=== PATIENT | male | born 1985 | race Two or more races ===

== ENCOUNTER 2025-01-12 16:22 | Inpatient (IN) | payer MEDICAID, OTHER ==
[~2025-01-12] VITALS: Ht 170.2 cm; Wt 88.5 kg
--- NOTE | 2025-01-12 16:50 | ED.PDOC ---
GI ASSESSMENT HPI Comments 39 y/o M, presents to the ED for CC of abdominal pain. Patient states, he has been experiencing diffuse abdominal pain with associated symptoms of nausea, vomiting, or diarrhea xdays. Patient complains of current 10/10 abdominal pain. Patient denies fever, chills, back pain, or dysuria. No other symptoms or modifying factors present at this time. Chief Complaint: Abdominal Pain Time Seen by MD: 16:40 Reviewed Notes: Nurses Notes, Medications, Allergies Allergies: Coded Allergies: NO KNOWN ALLERGIES (Unverified , 01/12/25) Information Source: Patient Mode of Arrival: Ambulatory Timing: Days Duration: Since onset Prehospital treatment: None Quality: None Vomitus: Watery Stool: Watery Severity: Moderate Recent: None Recent Hx of: None Pain Location: Diffuse Modifying Factors: Nothing Associated sign and symptoms: Nausea, Vomiting, Diarrhea, Abdominal Pain Past Medical History PAST MEDICAL HISTORY: Denies Surgical History: Denies all surgeries Family History Family History: Unknown Social History Smoker: Non-Smoker Alcohol: Denies ETOH Use Drugs: Denies Drug Use Lives In: Home Constitutional: denies: chills, diaphoresis, fatigue, fever, malaise, sweats, weakness, others EENTM: denies: blurred vision, double vision, ear bleeding, ear discharge, ear drainage, ear pain, ear ringing, eye pain, eye redness, hearing loss, mouth pain, mouth swelling, nasal discharge, nose bleeding, nose congestion, nose pain, photophobia, tearing, throat pain, throat swelling, voice changes, others Respiratory: denies: cough, hemoptysis, orthopnea, SOB at rest, shortness of breath, SOB with excertion, stridor, wheezing, others Cardiovascular: denies: chest pain, dizzy spells, diaphoresis, Dyspnea on exertion, edema, irregular heart beat, left arm pain, lightheadedness, palpitations, PND, syncope, others Gastrointestinal: reports: abdominal pain, diarrhea, nausea, vomiting; denies: abdomen distended, blood streaked bowels, constipated, dysphagia, difficulty swallowing, hematemesis, melena, poor appetite, poor fluid intake, rectal bleeding, rectal pain, others Genitourinary: denies: burning, dysuria, flank pain, frequency, hematuria, incontinence, penile discharge, penile sore, pain, testicle pain, testicle swell ing, urgency, others Neurological: denies: dizziness, fainting, headache, left sided numbness, left sided weakness, numbness, paresthesia, pre-existing deficit, right sided numbness, right sided weakness, seizure, speech problems, tingling, tremors, weakness, others Musculoskeletal: denies: back pain, gout, joint pain, joint swelling, muscle pain, muscle stiffness, neck pain, others Integumetry: denies: bruises, change in color, change in hair/nails, dryness, laceration, lesions, lumps, rash, wounds, others Allergic/Immunocompromised: denies: Difficulty Healing, Frequent Infections, Hives, Itching, others Hematologic/Lymphatic: denies: anemia, blood clots, easy bleeding, easy bruising, swollen glands, others Endocrine: denies: excessive hunger, excessive sweating, excessive thirst, excessive urination, flushing, intolerance to cold, intolerance to heat, unexplained weight gain, unexplained weight loss, others Psychiatric: denies: anxiety, bipolar disorder, depression, hopeless, panic disorder, schizophrenia, sleepless, suicidal, others All Other Systems: Reviewed and Negative Physical Exam General Appearance: No Apparent Distress, Normal HEENT: Normal ENT Inspection, Pharynx Normal Neck: Full Range of Motion, Non-Tender, Normal, Normal Inspection Respiratory: Chest Non-Tender, Lungs Clear, No Accessory Muscle Use, No Respiratory Distress, Normal Breath Sounds Cardiovascular: No Edema, No Murmur, No Gallop, Normal Peripheral Pulses, Regular Rate/Rhythm Breast Exam: Deferred Gastrointestinal: Diffuse, No Organomegaly, No Pulsatile Mass, Normal Bowel Sounds, Soft, Tenderness Genitalia: Deferred Pelvic: Deferred Rectal: Deferred Extremities: No calf tenderness, Normal capillary refill, Normal inspection, Normal range of motion, Non-tender, No pedal edema Musculoskeletal : Apperance: Normal Neurologic: Alert, 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 Was a procedure done?: No GI differential Dx Differential Diagnosis: Diverticular disease, Gastritis/PUD, Gastroenteritis, Inflammatory BD, Electrolyte Imbalance, Food Poisoning, Bacterial, Viral X-Ray, Labs, Meds, VS Vital Signs Date Time Temp Pulse Resp B/P (MAP) Pulse Ox O2 Delivery O2 Flow Rate FiO2 01/12/25 17:55 Room Air* 0 21 01/12/25 17:52 99.4 109 18 113/78 (90) 98 99.4 01/12/25 16:37 98.8 113 18 122/80 (94) 95 98.8 Lab Test 01/12/25 16:53 01/12/25 16:41 Range/Units Sodium Level 136 136-145 mmol/L Potassium Level 3.5 3.5-5.1 mmol/L Chloride Level 99 98-107 mmol/L Carbon Dioxide Level 26 20-31 mmol/L Anion Gap 11 5-15 Blood Urea Nitrogen 17 9-23 mg/dL Creatinine 1.81 H 0.700-1.30 mg/dL Glomerular Filtration Rate Calc 49 >90 mL/min BUN/Creatinine Ratio 9.4 L 10.0-20.0 Serum Glucose 147 H 74-106 mg/dL Calcium Level 9.6 8.7-10.4 mg/dL Total Bilirubin 3.6 H 0.2-1.0 mg/dL Aspartate Amino Transferase (AST) 28 13-40 U/L Alanine Aminotransferase (ALT) 38 7-40 U/L Alkaline Phosphatase 87 46-116 U/L Total Protein 8.3 H 5.7-8.2 g/dL Albumin 5.0 H 3.2-4.8 g/dL Lipase 38 12-53 U/L White Blood Count 21.1 H 4.4-10.8 10^3/uL Red Blood Count 5.44 4.5-5.90 10^6/uL Hemoglobin 16.9 13.5-17.5 g/dL Hematocrit 50.0 41.0-53.0 % Mean Corpuscular Volume 92.0 80.0-100.0 fL Mean Corpuscular Hemoglobin 31.2 28.0-32.0 pg Mean Corpuscular Hemoglobin Concent 33.9 32.0-36.0 g/dL Red Cell Distribution Width 14.0 11.8-14.3 % Platelet Count 290 140-450 10^3/uL Mean Platelet Volume 9.1 6.9-10.8 fL Neutrophils (%) (Auto) 86.7 H 37.0-80.0 % Lymphocytes (%) (Auto) 7.9 L 10.0-50.0 % Monocytes (%) (Auto) 5.0 0.0-12.0 % Eosinophils (%) (Auto) 0.0 0.0-7.0 % Basophils (%) (Auto) 0.4 0.0-2.0 % Neutrophils # (Auto) 18.3 H 1.6-8.6 10 ^3/uL Lymphocytes # (Auto) 1.7 0.4-5.4 10 ^3/uL Monocytes # (Auto) 1.0 0-1.3 10 ^3/uL Eosinophils # (Auto) 0 0-0.8 10 ^3/uL Basophils # (Auto) 0.1 0-0.2 10 ^3/uL Nucleated Red Blood Cells 0.0 % Current Medications Medications (Trade) Dose Ordered Sig/Destiny Route Start Time Stop Time Status Last Admin Metronidazole 100 ml @ 100 mls/hr ONCE ONCE IV 01/12/25 18:00 01/12/25 18:59 01/12/25 17:55 Ceftriaxone Sodium 50 ml @ 100 mls/hr ONCE ONCE IV 01/12/25 18:00 01/12/25 18:29 DC 01/12/25 17:55 [place] [id number] Ph: [phone] DIAGNOSTIC IMAGING Diagnostic Imaging Report : [id number] Signed PATIENT: MARIANNA BURTONOACCT: [id number] UNIT: [id number] : 1985 LOC: ER ROOM / BED: / AGE / SEX: 39 / M ADM STATUS: REG ER SERVICE 1641 ORDERING PHYSICIAN: NICK LOTT PROCEDURE(s): ABPL - CT AB PEL WO CON-NO ORAL OR IV REASON: ABD PAIN ORDER NUMBER(s): [id number], ACCESSION NUMBER(s): [id number] Exam: CT CT AB PEL WO CON-NO ORAL OR IV History: ABD PAIN Comparison Study: None Technique: Multidetector spiral CT of the abdomen and pelvis was performed from lung bases to pubic symphysis. Imaging was performed without IV contrast. Axial, coronal and sagittal multiplanar reformats were obtained from the axial d shin set by the technologist. Radiation dose : Abdomen/Pelvis: CTDIvol 10.26 mGy, DLP 552.19 mGy*cm. Findings: Evaluation of solid organs is limited due to lack of intravenous contrast use. Lung Bases: Ground-glass opacification nodular consolidation in the right lung base. Liver: The liver is normal in size. No focal lesions. Gallbladder and biliary Tree: Unremarkable Spleen: Unremarkable Pancreas: The pancreas is grossly normal in appearance. Adrenal Glands: Unremarkable Kidneys: Kidneys are grossly normal without calculi or hydronephrosis. Bladder: Grossly unremarkable for degree of distention. Bowel: The stomach is grossly normal in appearance. Small bowel is mildly dilated. Appendix is dilated with appendicolith at the base. There is associated wall thickening. There is adjacent extraluminal air and stranding. No loculated abscess. There is diffuse bowel wall thickening more prominent in the pelvis. Ascites: Small amount of free fluid in the pelvis. Lymphadenopathy: No mesenteric, retroperitoneal or periportal lymphadenopathy. Abdominal wall and Mesentery: Unremarkable. Vasculature: The visualized abdominal aorta is normal in size and caliber. Evaluation of abdominal and pelvic vessels is limited due to lack of intravenous contrast. Pelvic Organs: Unremarkable Musculoskeletal: No aggressive focal bony lesions, acute fractures or dislocation. IMPRESSION: 1. Acute appendicitis which appears to have ruptured with extraluminal air and free fluid in the pelvis. No definite loculated abscess. Wall thickening in the regional bowel could be due to secondary ileus. Consider follow-up exam with intravenous contrast. Clinical correlation and continued follow-up is recommended. 2. Ground-glass and nodular consolidation in the right lung base. Consider dedicated chest CT. Critical Result: Acute appendicitis Findings discussed with NICK LOTT at 01/12/2025 05:36 PM, and acknowledged receipt and understanding of the findings. Radiation optimization: All CT scans at this facility use at least one of these dose optimization techniques: Automated exposure control mA and/or kV adjustment per patient size (includes targeted exams where dose is matched to clinical indication) or iterative reconstruction. HS:Y ATED BY: KRISHAN GIRON MD DICTATED DATE/TIME: 01/12/251740 SIGNED BY: KRISHAN GIRON MD SIGNED DATE/TIME: 01/12/251740 CC: X-Ray, Labs, Meds, VS Comment CT abdomen and pelvis: IMPRESSION: 1. Acute appendicitis which appears to have ruptured with extraluminal air and free fluid in the pelvis. No definite loculated abscess. Wall thickening in the regional bowel could be due to secondary ileus. Consider follow-up exam with intravenous contrast. Clinical correlation and continued follow-up is recommended. 2. Ground-glass and nodular consolidation in the right lung base. Consider dedicated chest CT. Critical Result: Acute appendicitis Findings discussed with NICK LOTT at 01/12/2025 05:36 PM, and acknowledged receipt and understanding of the findings. Radiation optimization: All CT scans at this facility use at least one of these dose optimization techniques: Automated exposure control mA and/or kV adjustment per patient size (includes targeted exams where dose is matched to clinical indication) or iterative reconstruction. Spoke with Dr. Ferrara, general surgery on-call, he will come into evaluate patient , patient evaluated at 6:51 p.m., Recommends patient be hydrated with 1-2 L NS due to his creatinine being low and concerns of dehydration. Jeff jensen be 1st case at 7:00 a.m. tomorrow morning. Patient may sip on water, he will be held NPO midnight. Patient is started on Rocephin 1 g and Flagyl 500 Time of 1ST Reevaluation: 17:20 Reevaluation 1ST: Unchanged Patient Education/Counseling: Diagnosis, Treatment Family Education/Counseling: No Family Present SEPSIS Sepsis Screen Physician Orders Urinalysis (01/12/25 16:41) Ct Ab Pel Wo Con-No Oral Or Iv (01/12/25 16:41) Npo (Nothing By Mouth) Diet (01/12/25 Dinner) Metronidazole 500mg/100ml (Flagyl 500mg/ (01/12/25 18:00) Vital Signs Date Time Temp Pulse Resp B/P (MAP) Pulse Ox O2 Delivery O2 Flow Rate FiO2 01/12/25 17:55 Room Air* 0 21 01/12/25 17:52 99.4 109 18 113/78 (90) 98 99.4 01/12/25 16:37 98.8 113 18 122/80 (94) 95 98.8 Laboratory Tests Test 01/12/25 16:41 White Blood Count 21.1 10^3/uL (4.4-10.8) H Medications Medications Dose Ordered Sig/Destiny Route Start Time Stop Time Status Last Admin Dose Admin Ceftriaxone Sodium 50 ml @ 100 mls/hr ONCE ONCE IV 01/12/25 18:00 01/12/25 18:29 DC 01/12/25 17:55 Metronidazole 100 ml @ 100 mls/hr ONCE ONCE IV 01/12/25 18:00 01/12/25 18:59 01/12/25 17:55 Departure 1 Departure Time of Disposition: 18:04 Impression: Primary Impression: Appendicitis Qualified Codes: K35.201 - Acute appendicitis with generalized peritonitis, with perforation, without abscess Disposition: ADMITTED INPATIENT Condition: Guarded Critical Care Note Critical Care Time?: No Stability Stability form required: No Heart Score Heart Score: Heart Score Response (Comments) Value History N/A 0 EKG N/A 0 Age N/A 0 Risk Factors N/A 0 Troponin N/A 0 Total 0 I personally scribed for NICK LOTT [employer] on 01/12/25 at 16:50. Electronically submitted by [employer] ([email or web address]). I personally scribed for NICK LOTT [employer] ([employer]) on 01/12/25 at 17:59. Electronically submitted by [employer] ([email or web address]). NICK LOTT [employer] Jan 12, 2025 16:50
[2025-01-12 17:21] LABS: Hematocrit 50.0 % (41.0-53.0); Hemoglobin 16.9 g/dL (13.5-17.5); Mean Corpuscular Hemoglobin 31.2 pg (28.0-32.0); Mean Corpuscular Volume 92.0 fL (80.0-100.0); Nucleated Red Blood Cells % 0.0 %
[2025-01-12 17:39] LABS: Alanine Aminotransferase 38 U/L (7-40); Alkaline Phosphatase 87 U/L (46-116); Anion Gap 11 (5-15); BUN/Creatinine Ratio 9.4 (10.0-20.0); Blood Urea Nitrogen 17 mg/dL (9-23); Calcium 9.6 mg/dL (8.7-10.4); Carbon Dioxide 26 mmol/L (20-31); Chloride 99 mmol/L (98-107); Lipase 38 U/L (12-53); Potassium 3.5 mmol/L (3.5-5.1); Sodium 136 mmol/L (136-145)
--- NOTE | 2025-01-12 17:43 | DVH ---
Exam: CT CT AB PEL WO CON-NO ORAL OR IV History: ABD PAIN Comparison Study: None Technique: Multidetector spiral CT of the abdomen and pelvis was performed from lung bases to pubic symphysis. Imaging was performed without IV contrast. Axial, coronal and sagittal multiplanar reform ats were obtained from the axial data set by the technologist. Radiation dose : Abdomen/Pelvis: CTDIvol 10.26 mGy, DLP 552.19 mGy*cm. Findings: Evaluation of solid organs is limited due to lack of intravenous contrast use. Lung Bases: Ground-glass opacification nodular consolidation in the right lung base. Liver: The liver is normal in size. No focal lesions. Gallbladder and biliary Tree: Unremarkable Spleen: Unremarkable Pancreas: The pancreas is grossly normal in appearance. Adrenal Glands: Unremarkable Kidneys: Kidneys are grossly normal without calculi or hydronephrosis. Bladder: Grossly unremarkable for degree of distention. Bowel: The stomach is grossly normal in appearance. Small bowel is mildly dilated. Appendix is dilat ed with appendicolith at the base. There is associated wall thickening. There is adjacent extralumi nal air and stranding. No loculated abscess. There is diffuse bowel wall thickening more prominent in the pelvis. Ascites: Small amount of free fluid in the pelvis. Lymphadenopathy: No mesenteric, retroperitoneal or periportal lymphadenopathy. Abdominal wall and Mesentery: Unremarkable. Vasculature: The visualized abdominal aorta is normal in size and caliber. Evaluation of abdominal a nd pelvic vessels is limited due to lack of intravenous contrast. Pelvic Organs: Unremarkable Musculoskeletal: No aggressive focal bony lesions, acute fractures or dislocation. IMPRESSION: 1. Acute appendicitis which appears to have ruptured with extraluminal air and free fluid in the pelv is. No definite loculated abscess. Wall thickening in the regional bowel could be due to secondary i leus. Consider follow-up exam with intravenous contrast. Clinical correlation and continued follow-u p is recommended. 2. Ground-glass and nodular consolidation in the right lung base. Consider dedicated chest CT. Critical Result: Acute appendicitis Findings discussed with NICK LOTT at 01/12/2025 05:36 PM, and acknowledged receipt and unders tanding of the findings. Radiation optimization: All CT scans at this facility use at least one of these dose optimization maggie hniques: Automated exposure control mA and/or kV adjustment per patient size (includes targeted exams where dose is matched to clinical indication) or iterative reconstruction. HS:Y
[2025-01-12] MEDS: cefTRIAXone 1GM/50ML D5W 50 ML IV ONE (17:55)
[2025-01-12 18:05] LABS: Albumin 5.0 g/dL (3.2-4.8); Bilirubin, Total 3.6 mg/dL (0.2-1.0); Glucose 147 mg/dL (74-106); Total Protein 8.3 g/dL (5.7-8.2)
--- NOTE | 2025-01-12 19:02 | DVHINCON2 ---
Consultation - Surgical Date Seen: Jan 12, 2025 Referring Physician Referring Physician er Reason for Consultation Appendicitis History of Present Illness History of Present Illness 39 y/o M, presents to the ED for CC of abdominal pain. Patient states, he has been experiencing diffuse abdominal pain with associated symptoms of nausea, vomiting, or diarrhea for 2 days. Patient states pain has worsened over the last 24 hours he was nauseous and vomited which brought him to the emergency room. Patient denies fever, chills, back pain, or dysuria. No other symptoms or modifying factors present at this time. 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 Allergies and medications Allergies: Coded Allergies: NO KNOWN ALLERGIES (Unverified , 01/12/25) Current Medications None Review of systems Review of Systems: HEENT:Normal, CVS:Normal, RESPIRATORY:Normal, GI:Abnormal, :Normal, NEURO:Normal Examination Vital signs Vital Signs Date Time Temp Pulse Resp B/P (MAP) Pulse Ox O2 Delivery O2 Flow Rate FiO2 01/12/25 17:55 Room Air* 0 21 01/12/25 17:52 99.4 109 18 113/78 (90) 98 99.4 Laboratory Labs Test 01/12/25 16:53 01/12/25 16:41 Range/Units Sodium Level 136 136-145 mmol/L Potassium Level 3.5 3.5-5.1 mmol/L Chloride Level 99 98-107 mmol/L Carbon Dioxide Level 26 20-31 mmol/L Anion Gap 11 5-15 Blood Urea Nitrogen 17 9-23 mg/dL Creatinine 1.81 H 0.700-1.30 mg/dL Glomerular Filtration Rate Calc 49 >90 mL/min BUN/Creatinine Ratio 9.4 L 10.0-20.0 Serum Glucose 147 H 74-106 mg/dL Calcium Level 9.6 8.7-10.4 mg/dL Total Bilirubin 3.6 H 0.2-1.0 mg/dL Aspartate Amino Transferase (AST) 28 13-40 U/L Alanine Aminotransferase (ALT) 38 7-40 U/L Alkaline Phosphatase 87 46-116 U/L Total Protein 8.3 H 5.7-8.2 g/dL Albumin 5.0 H 3.2-4.8 g/dL Lipase 38 12-53 U/L White Blood Count 21.1 H 4.4-10.8 10^3/uL Red Blood Count 5.44 4.5-5.90 10^6/uL Hemoglobin 16.9 13.5-17.5 g/dL Hematocrit 50.0 41.0-53.0 % Mean Corpuscular Volume 92.0 80.0-100.0 fL Mean Corpuscular Hemoglobin 31.2 28.0-32.0 pg Mean Corpuscular Hemoglobin Concent 33.9 32.0-36.0 g/dL Red Cell Distribution Width 14.0 11.8-14.3 % Platelet Count 290 140-450 10^3/uL Mean Platelet Volume 9.1 6.9-10.8 fL Neutrophils (%) (Auto) 86.7 H 37.0-80.0 % Lymphocytes (%) (Auto) 7.9 L 10.0-50.0 % Monocytes (%) (Auto) 5.0 0.0-12.0 % Eosinophils (%) (Auto) 0.0 0.0-7.0 % Basophils (%) (Auto) 0.4 0.0-2.0 % Neutrophils # (Auto) 18.3 H 1.6-8.6 10 ^3/uL Lymphocytes # (Auto) 1.7 0.4-5.4 10 ^3/uL Monocytes # (Auto) 1.0 0-1.3 10 ^3/uL Eosinophils # (Auto) 0 0-0.8 10 ^3/uL Basophils # (Auto) 0.1 0-0.2 10 ^3/uL Nucleated Red Blood Cells 0.0 % Exam: CT CT AB PEL WO CON-NO ORAL OR IV History: ABD PAIN Comparison Study: None Technique: Multidetector spiral CT of the abdomen and pelvis was performed from lung bases to pubic symphysis. Imaging was performed without IV contrast. Axial, coronal and sagittal multiplanar reformats were obtained from the axial data set by the technologist. Radiation dose : Abdomen/Pelvis: CTDIvol 10.26 mGy, DLP 552.19 mGy*cm. Findings: Evaluation of solid organs is limited due to lack of intravenous contrast use. Lung Bases: Ground-glass opacification nodular consolidation in the right lung base. Liver: The liver is normal in size. No focal lesions. Gallbladder and biliary Tree: Unremarkable Spleen: Unremarkable Pancreas: The pancreas is grossly normal in appearance. Adrenal Glands: Unremarkable Kidneys: Kidneys are grossly normal without calculi or hydronephrosis. Bladder: Grossly unremarkable for degree of distention. Bowel: The stomach is grossly normal in appearance. Small bowel is mildly dilated. Appendix is dilated with appendicolith at the base. There is associated wall thickening. There is adjacent extraluminal air and stranding. No loculated abscess. There is diffuse bowel wall thickening more prominent in the pelvis. Ascites: Small amount of free fluid in the pelvis. Lymphadenopathy: No mesenteric, retroperitoneal or periportal lymphadenopathy. Abdominal wall and Mesentery: Unremarkable. Vasculature: The visualized abdominal aorta is normal in size and caliber. Evaluation of abdominal and pelvic vessels is limited due to lack of intravenous contrast. Pelvic Organs: Unremarkable Musculoskeletal: No aggressive focal bony lesions, acute fractures or dislocation. IMPRESSION: 1. Acute appendicitis which appears to have ruptured with extraluminal air and free fluid in the pelvis. No definite loculated abscess. Wall thickening in the regional bowel could be due to secondary ileus. Consider follow-up exam with intravenous contrast. Clinical correlation and continued follow-up is recommended. Examination: GENERAL:Normal (ppears to be ill.), GENERAL:Abnormal, HEENT:Normal, NECK:Normal, LUNGS:Normal, CVS:Normal, ABDOMEN:Abnormal (Abdomen is mildly distended soft but tender to the touch specifically in the right lower quadrant mild guarding. No rebound), MSK:Normal, SKIN:Normal, NEURO:Normal Problem List/Assessment/Plan Problems: (1) Appendicitis Assessment and Plan Acute appendicitis with a contained rupture. Patient with elevated white count and elevated creatinine. Patient is dehydrated. IV antibiotics IV fluids Pain control Operation: Laparoscopic possible open appendectomy exploratory laparotomy once fluid resuscitated. Plan discussed with Plan discussed with: Patient Visit Coding Surgery Date of Service if different f: Jan 12, 2025 Billing Provider: RAFFAELE MEDINA Jr., MD Surgery Visit Codes: 05890 - INP CONSULT <80 MIN RAFFAELE MEDINA Jr., MD Jan 12, 2025 19:01
[2025-01-12 19:30] VITALS: PULSE 101; RESP 19; O2SAT 95
[2025-01-12] MEDS: SODIUM CHLORIDE 0.9% 1,000 ML IV ONE ×3 (19:48→21:41)
[2025-01-12] MEDS: MORPHINE SULFATE 4 MG/ML SYR/VIAL IV ONE (19:48)
[2025-01-12] MEDS: ONDANSETRON HCL 4 MG/2 ML VIAL IV ONE (19:48)
[2025-01-12] MEDS ORDERED: NITROGLYCERIN 0.4 MG SL TAB SL PRN (20:00)
[2025-01-12] MEDS ORDERED: MORPHINE SULFATE INJ 2 MG/ml SYRG IV PRN (20:00)
[2025-01-12 20:22] LABS: Urine Protein, UAD Negative (Negative)
--- NOTE | 2025-01-12 21:52 | DVHHP2 ---
History of Present Illness Reason for Visit: Abdominal pain History of Present Illness 39-year-old male presents for evaluation of abdominal pain. Patient reports having similar symptoms two months ago but as soon as he would vomit the symptoms with the site. He states that over the past two days he has been having sharp lower abdominal pain that radiates to his right groin. He states that initially it was intermittent med since today the pain has been sharp and constant. He also reports episodes of nausea with vomiting. He also states having a fever. Past Medical History Denies Past Surgical History Denies Family History Noncontributory Smoke: No ALCOHOL: none Drugs: None Lives: with Family Review of Systems Review of Systems Review of systems are currently negative otherwise addressed in HPI. Allergies: Coded Allergies: NO KNOWN ALLERGIES (Unverified , 01/12/25) Medications Current Medications Medications Dose Ordered Sig/Destiny Route Start Time Stop Time Status Last Admin Dose Admin Nitroglycerin 0.4 mg Q5MINP PRN SL 01/12/25 20:00 Morphine Sulfate 2 mg Q30M PRN IV 01/12/25 20:00 Piperacillin Sod/ Tazobactam Sod 100 ml @ 25 mls/hr Q8HR IV 01/12/25 22:00 UNV Metronidazole 100 ml @ 100 mls/hr Q8HR IV 01/12/25 22:00 UNV Pantoprazole Sodium 40 mg DAILY IV 01/13/25 10:00 UNV Ondansetron HCl 4 mg Q4HP PRN IV 01/12/25 21:45 UNV Morphine Sulfate 2 mg Q4HPRN PRN IV 01/12/25 21:45 UNV Exam Vital Signs Vital Signs Date Time Temp Pulse Resp B/P (MAP) Pulse Ox O2 Delivery O2 Flow Rate FiO2 01/12/25 20:18 95 21 110/71 01/12/25 19:30 102.5 95 102.5 01/12/25 19:30 Room Air* 0 21 Exam Gen: 39-year-old male in mild distress Skin: Warm, dry, normal color and texture, no rash. HEENT: Normocephalic atraumatic, mucous membranes moist and pink. Neck: Cervical and supraclavicular nodes normal without enlargement, trachea is midline, thyroid gland is normal without masses. Pulmonary: Clear to auscultation and percussion bilaterally. Cardiac: Sinus tachycardia Abdomen: Soft, right lower quadrant tenderness, nondistended, bowel sounds present all 4 quadrants, guarding, no rigidity, no organomegaly. Extremities: No cyanosis, clubbing, no edema Neuro: Cranial nerves II through XII grossly intact, normal affect and speech, no focal motor deficits. Labs/Xrays ORDERING PHYSICIAN: NICK LOTT PROCEDURE(s): ABPL - CT AB PEL WO CON-NO ORAL OR IV REASON: ABD PAIN ORDER NUMBER(s): [id number], ACCESSION NUMBER(s): [id number] Exam: CT CT AB PEL WO CON-NO ORAL OR IV History: ABD PAIN Comparison Study: None Technique: Multidetector spiral CT of the abdomen and pelvis was performed from lung bases to pubic symphysis. Imaging was performed without IV contrast. Axial, coronal and sagittal multiplanar reformats were obtained from the axial data set by the technologist. Radiation dose : Abdomen/Pelvis: CTDIvol 10.26 mGy, DLP 552.19 mGy*cm. Findings: Evaluation of solid organs is limited due to lack of intravenous contrast use. Lung Bases: Ground-glass opacification nodular consolidation in the right lung base. Liver: The liver is normal in size. No focal lesions. Gallbladder and biliary Tree: Unremarkable Spleen: Unremarkable Pancreas: The pancreas is grossly normal in appearance. Adrenal Glands: Unremarkable Kidneys: Kidneys are grossly normal without calculi or hydronephrosis. Bladder: Grossly unremarkable for degree of distention. Bowel: The stomach is grossly normal in appearance. Small bowel is mildly dilated. Appendix is dilated with appendicolith at the base. There is associated wall thickening. There is adjacent extraluminal air and stranding. No loculated abscess. There is diffuse bowel wall thickening more prominent in the pelvis. Ascites: Small amount of free fluid in the pelvis. Lymphadenopathy: No mesenteric, retroperitoneal or periportal lymphadenopathy. Abdominal wall and Mesentery: Unremarkable. Vasculature: The visualized abdominal aorta is normal in size and caliber. Evaluation of abdominal and pelvic vessels is limited due to lack of intravenous contrast. Pelvic Organs: Unremarkable Musculoskeletal: No aggressive focal bony lesions, acute fractures or dislocation. IMPRESSION: 1. Acute appendicitis which appears to have ruptured with extraluminal air and f ree fluid in the pelvis. No definite loculated abscess. Wall thickening in the regional bowel could be due to secondary ileus. Consider follow-up exam with intravenous contrast. Clinical correlation and continued follow-up is recommended. 2. Ground-glass and nodular consolidation in the right lung base. Consider dedicated chest CT. Critical Result: Acute appendicitis Findings discussed with NICK LOTT at 01/12/2025 05:36 PM, and acknowledged receipt and understanding of the findings. Radiation optimization: All CT scans at this facility use at least one of these dose optimization techniques: Automated exposure control mA and/or kV adjustment per patient size (includes targeted exams where dose is matched to clinical indication) or iterative reconstruction. HS:Y Labs Test 01/12/25 19:43 01/12/25 16:53 01/12/25 16:41 01/12/25 16:35 Range/Units Lactic Acid Level 2.0 0.4-2.0 mmol/L Sodium Level 136 136-145 mmol/L Potassium Level 3.5 3.5-5.1 mmol/L Chloride Level 99 98-107 mmol/L Carbon Dioxide Level 26 20-31 mmol/L Anion Gap 11 5-15 Blood Urea Nitrogen 17 9-23 mg/dL Creatinine 1.81 H 0.700-1.30 mg/dL Glomerular Filtration Rate Calc 49 >90 mL/min BUN/Creatinine Ratio 9.4 L 10.0-20.0 Serum Glucose 147 H 74-106 mg/dL Calcium Level 9.6 8.7-10.4 mg/dL Total Bilirubin 3.6 H 0.2-1.0 mg/dL Aspartate Amino Transferase (AST) 28 13-40 U/L Alanine Aminotransferase (ALT) 38 7-40 U/L Alkaline Phosphatase 87 46-116 U/L Total Protein 8.3 H 5.7-8.2 g/dL Albumin 5.0 H 3.2-4.8 g/dL Lipase 38 12-53 U/L White Blood Count 21.1 H 4.4-10.8 10^3/uL Red Blood Count 5.44 4.5-5.90 10^6/uL Hemoglobin 16.9 13.5-17.5 g/dL Hematocrit 50.0 41.0-53.0 % Mean Corpuscular Volume 92.0 80.0-100.0 fL Mean Corpuscular Hemoglobin 31.2 28.0-32.0 pg Mean Corpuscular Hemoglobin Concent 33.9 32.0-36.0 g/dL Red Cell Distribution Width 14.0 11.8-14.3 % Platelet Count 290 140-450 10^3/uL Mean Platelet Volume 9.1 6.9-10.8 fL Neutrophils (%) (Auto) 86.7 H 37.0-80.0 % Lymphocytes (%) (Auto) 7.9 L 10.0-50.0 % Monocytes (%) (Auto) 5.0 0.0-12.0 % Eosinophils (%) (Auto) 0.0 0.0-7.0 % Basophils (%) (Auto) 0.4 0.0-2.0 % Neutrophils # (Auto) 18.3 H 1.6-8.6 10 ^3/uL Lymphocytes # (Auto) 1.7 0.4-5.4 10 ^3/uL Monocytes # (Auto) 1.0 0-1.3 10 ^3/uL Eosinophils # (Auto) 0 0-0.8 10 ^3/uL Basophils # (Auto) 0.1 0-0.2 10 ^3/uL Nucleated Red Blood Cells 0.0 % Urine Color Yellow Yellow Urine Clarity Turbid H Clear Urine pH 6.0 5.0-9.0 Urine Specific [place] 1.031 1.001-1.035 Urine Protein Negative Negative Urine Ketones Trace Negative Urine Blood Negative Negative /uL Urine Nitrite 2+ H Negative Urine Bilirubin Negative Negative Urine Urobilinogen 8 H Negative mg/dL Urine Leukocyte Esterase 1+ Negative /uL Urine RBC 2 0 - 3 /hpf Urine Microscopic WBC 17 H 0-3 /HPF Urine Squamous Epithelial Cells Few <5 /hpf Urine Bacteria Few H None Seen /hpf Urine Mucus Few None Seen Urine Glucose Normal Normal mg/dL Assessment/Plan Assessment/Plan Assessment Acute appendicitis Leukocytosis UTI Plan Admit the patient to [facility] to the hospitalist Surgical consultation Zosyn/Flagyl Maintenance IV fluids Pain management Continue treatment per orders. Plan discussed with: Patient My Orders Orders - VALENTÍN MONTAGUE AGACNP Procedure Category Date Status Time Admit ADMIT 01/12/25 Transmitted 19:58 Nitroglycerin PHA 01/12/25 In Process Sublingual (Ntrostat 20:00 Morphine Sulfate PHA 01/12/25 In Process Injection 20:00 Stat Ekg For Chest JANELLE 01/12/25 In Process Pain 19:58 Notify Of Changes JANELLE 01/12/25 In Process From Base 19:58 Engineering Teacher For JANELLE 01/12/25 In Process 24 Hours 19:58 Emergency Dysrhythmia JANELLE 01/12/25 In Process Protocol 19:58 Rhythm Strips Once JANELLE 01/12/25 In Process Every Shift 19:58 Oxygen By Nasal RT 01/12/25 Transmitted Cannula 19:58 Sodium Chloride 0.9% PHA 01/12/25 In Process 20:15 Piperacillin-Tazob PHA 01/12/25 Logged 3.375gm (Zosyn 3.375g 22:00 Metronidazole PHA 01/12/25 Logged 500mg/100ml (Flagyl 22:00 Pantoprazole PHA 01/13/25 Logged (Protonix) 10:00 Pantoprazole PHA 01/12/25 Logged (Protonix) 21:45 Type And Screen BBK 01/12/25 Logged 21:44 PTPTT LAB 01/12/25 Logged 21:44 Chest Xray 1 View XY 01/12/25 Logged 21:44 Ondansetron Hcl PHA 01/12/25 Logged (Zofran) 21:45 Complete Blood Count LAB 01/13/25 Verified 04:00 Comprehensive LAB 01/13/25 Verified Metabolic Panel 04:00 Condition: Critical JANELLE 01/12/25 In Process 21:44 Bedrest With Bathroom JANELLE 01/12/25 In Process Privileg 21:44 Morphine Sulfate PHA 01/12/25 Logged Injection 21:45 Date of Service: Jan 12, 2025 Billing Provider: VALENTÍN MONTAGUE Common Visit Codes: [id number] CARE 30-74 MIN VALENTÍN MONTAGUE Jan 12, 2025 21:52
[2025-01-12] MEDS: PANTOPRAZOLE 40 MG/10 ML VIAL INJ IV ONE (22:14)
[2025-01-12] MEDS: PIPERACILLIN-TAZOB 3.375GM 100 ML IV SCH (22:19)
[2025-01-12 22:44] LABS: INR 1.26 (0.9-1.15); Partial Thromboplastin Time 31.3 SEC (24.5-34.5); Prothrombin Time 13.1 sec (9.3-11.8)
--- NOTE | 2025-01-12 23:34 | DVH ---
CHEST RADIOGRAPH Indication: preop Technique: Single frontal view of the chest was obtained COMPARISON: None FINDINGS: Lines and Tubes: None Lungs: Right lower lobe opacity may reflect atelectasis or mild pneumonia. Pleura: No effusion. No pneumothorax. Cardiomediastinal contours: Unremarkable Bones: Unremarkable IMPRESSION: 1. Right lower lobe opacity may reflect atelectasis or mild pneumonia.
[2025-01-13] VITALS (41 sets, daily range): BP systolic 87–128; BP diastolic 50–77; PULSE 60–111; RESP 10–25; TEMP 98–103.2; O2SAT 83–100
[2025-01-13] MEDS: ONDANSETRON HCL 4 MG/2 ML VIAL IV PRN (00:29)
[2025-01-13] MEDS: ACETAMINOPHEN IV 1000 MG/100ML (10MG/ML) IV ONE ×2 (00:52→08:55)
[2025-01-13] MEDS: MORPHINE SULFATE INJ 2 MG/ml SYRG IV PRN (04:49)
[2025-01-13 05:10] LABS: Hematocrit 46.2 % (41.0-53.0); Hemoglobin 15.3 g/dL (13.5-17.5); Mean Corpuscular Hemoglobin 31.3 pg (28.0-32.0); Mean Corpuscular Volume 94.4 fL (80.0-100.0); Nucleated Red Blood Cells % 0.0 %
[2025-01-13 05:31] LABS: Alanine Aminotransferase 30 U/L (7-40); Alkaline Phosphatase 77 U/L (46-116); Anion Gap 13 (5-15); BUN/Creatinine Ratio 14.5 (10.0-20.0); Blood Urea Nitrogen 22 mg/dL (9-23); Calcium 8.7 mg/dL (8.7-10.4); Carbon Dioxide 22 mmol/L (20-31); Chloride 104 mmol/L (98-107); Potassium 4.3 mmol/L (3.5-5.1); Sodium 139 mmol/L (136-145); Total Protein 7.0 g/dL (5.7-8.2)
[2025-01-13 05:32] LABS: Albumin 4.4 g/dL (3.2-4.8)
[2025-01-13 05:34] LABS: Glucose 115 mg/dL (74-106)
[2025-01-13 06:06] LABS: Bilirubin, Total 3.0 mg/dL (0.2-1.0)
[2025-01-13] MEDS ORDERED: PROPOFOL 10 MG/ML 20 ML IV ONE (07:27)
[2025-01-13] MEDS ORDERED: METOCLOPRAMIDE HCL 5MG/ml INJ 2ml VIAL ONE (07:27)
[2025-01-13] MEDS ORDERED: ROCURONIUM 10MG/ML 10ML VIAL IV ONE (07:27)
[2025-01-13] MEDS ORDERED: LIDOCAINE 2% (LOCAL ANESTH.) PF 5ml SDV ONE (07:27)
[2025-01-13] MEDS ORDERED: ONDANSETRON HCL 4 MG/2 ML VIAL ONE (07:27)
[2025-01-13] MEDS ORDERED: fentaNYL CITRATE 100 MCG/2 ML VL ONE (07:29)
[2025-01-13] MEDS ORDERED: MIDAZOLAM HCL 2MG/2ML 2ml VIAL (1mg/ml) ONE (07:29)
[2025-01-13] MEDS: LIDOCAINE W/ EPINEPHRINE 1% 20ML VIAL ONE (07:59)
[2025-01-13] MEDS: BUPIVACAINE 0.5% P/F INJ 10 ML VIAL ONE (07:59)
[2025-01-13] MEDS ORDERED: HYDROmorphone HCL 2 MG/ML VL/or syr ONE (08:00)
[2025-01-13] MEDS ORDERED: SUGAMMADEX 200mg/2ml Vial (100MG/ML) IV ONE (08:03)
[2025-01-13] MEDS ORDERED: NALOXONE HCL 0.4 MG/ML VIAL ONE (08:18)
[2025-01-13] MEDS: ONDANSETRON HCL 4 MG/2 ML VIAL IV ONE (08:30)
[2025-01-13] MEDS ORDERED: HYDROmorphone HCL 2 MG/ML VL/or syr IV PRN (08:30)
--- NOTE | 2025-01-13 09:25 | DVHOP ---
DATE OF SURGERY: 01/13/2025 PREOPERATIVE DIAGNOSIS: Ruptured appendicitis. POSTOPERATIVE DIAGNOSIS: Ruptured appendicitis. SURGEON: Rudy Justin MD. JAVA FRONT END WEB DEVELOPER: Aris Pickard NP. ANESTHESIA: General endotracheal. ANESTHESIOLOGIST: Nurse apparel designer. DESCRIPTION OF PROCEDURE: Under general anesthesia with the patient's skin prepped and draped, a supraumbilical incision was made and Veress needle inserted by the hanging drop technique in order to establish pneumoperitoneum by insufflation with carbon dioxide to 15 mmHg pressure. With the patient's abdomen fully distended, the needle was removed and replaced with a 5 mm trocar port through which a 0-degree laparoscope was inserted and under direct vision, an additional 5 mm port was inserted through the subxiphoid midline skin and a 10 mm port inserted in the midline through the infraumbilical skin. Instrumentation was introduced revealing peritonitis with right lower quadrant phlegmon. The phlegmon was bluntly. Fibrinous adhesions were and large pool of infected fluid was aspirated and sampled for cultures and sensitivities. Subsequently, the appendix was encountered. It was adherent to the lateral abdominal wall. It was placed on tension and traced through its confluence with the cecum. At the base of the appendix, the appendix was cross-clamped and divided with an Endo MAURO stapler equipped with vascular ike. The appendix was then removed by placement in a specimen extraction bag which was removed through the infraumbilical midline 10 mm port. Subsequently, the abdomen was inspected. There was collection of fluid above the right lobe of the liver. This was aspirated and irrigated. There were collections of fluid on the right lateral abdominal gutter. This was irrigated and aspirated and a collection in the pelvis which was irrigated and aspirated. A 10 mm drain was then placed and directed into the pelvis along the right lateral gutter and exteriorized through the 5 mm port site above the umbilicus and secured with a 2-0 nylon suture. Following assurance of complete hemostasis at the appendicectomy site as well as the port sites, pneumoperitoneum was evacuated. Instrumentation was withdrawn. Fascial defect was closed using 0 Vicryl. Wounds were approximated using Monocryl sutures, Dermabond, glue, and Steri-Strips. The patient remained stable throughout the procedure, left the operating room following an accurate needle and sponge count. MD MINOO Navas/ALESSIO/MAKEDA TID: [id number] RECEIPT: [id number]
[2025-01-13] MEDS: PANTOPRAZOLE 40 MG/10 ML VIAL INJ IV SCH (09:54)
[2025-01-13] MEDS: D5W/SOD CHL 0.45%/KCL 20MEQ 1,000 ML IV SCH (09:55)
[2025-01-13] MEDS: METOCLOPRAMIDE HCL 5MG/ml INJ 2ml VIAL IV ONE (11:06)
--- NOTE | 2025-01-13 11:08 | DVHPN2 ---
Subjective Patient denies any symptoms at this time Reviewed: Care Plan, H&P, Labs, Medications Changes from previous H/P or p: No Changes General: Per HPI Objective Vitals Vital Signs Date Time Temp Pulse Resp B/P (MAP) Pulse Ox O2 Delivery O2 Flow Rate FiO2 01/13/25 10:00 10 94 Nasal Cannula* 2 28 01/13/25 09:35 86 01/13/25 09:30 98.7 93/57 (69) 98.7 Intake/Output Intake and Output 01/13/25 07:00 Intake Total 3000 ml Output Total 450 ml Balance 2550 ml Intake Oral 0 ml IV Total 3000 ml Output Urine Total 450 ml General Appearance: Alert, Oriented X3, Cooperative, No acute distress HEENT: Atraumatic, PERRLA Cardiovascular: Normal S1, Normal S2 Abdomen: Other (Hypoactive bowel sounds. Wound benign. Drain with serosanguineous) Genitourinary: No Apparent Abnormalities Musculoskeletal: Normal sensory function, Normal motor function Skin: Dry, Intact Psych/Mental Status: Mental status NL, Mood NL Medications Current Medications Medications Dose Ordered Sig/Destiny Route Start Time Stop Time Status Last Admin Dose Admin Nitroglycerin 0.4 mg Q5MINP PRN SL 01/12/25 20:00 Piperacillin Sod/ Tazobactam Sod 100 ml @ 25 mls/hr Q8HR IV 01/12/25 22:00 01/13/25 06:06 25 MLS/HR Pantoprazole Sodium 40 mg DAILY IV 01/13/25 10:00 01/13/25 09:54 40 MG Ondansetron HCl 4 mg Q4HP PRN IV 01/12/25 21:45 01/13/25 00:29 4 MG Morphine Sulfate 2 mg Q4HPRN PRN IV 01/12/25 21:45 01/13/25 04:49 2 MG Metronidazole 100 ml @ 100 mls/hr Q8H IV 01/13/25 10:00 01/13/25 09:54 100 MLS/HR Potassium Chloride/Dextrose/ Sod Cl 1,000 ml @ 120 mls/hr Q8H20M IV 01/13/25 08:30 01/13/25 09:55 120 MLS/HR Laboratory Results Laboratory Tests 01/13/25 04:37 Chemistry Test 01/12/25 16:53 01/13/25 04:37 Albumin 5.0 g/dL (3.2-4.8) H 4.4 g/dL (3.2-4.8) Calcium Level 9.6 mg/dL (8.7-10.4) 8.7 mg/dL (8.7-10.4) Total Protein 8.3 g/dL (5.7-8.2) H 7.0 g/dL (5.7-8.2) Coagulation Test 01/12/25 21:57 Prothrombin Time 13.1 sec (9.3-11.8) H Prothrombin Time INR 1.26 (0.9-1.15) H Activated Partial Thromboplast Time 31.3 SEC (24.5-34.5) Lipid panel Test 01/12/25 16:53 Lipase 38 U/L (12-53) LFT Test 01/12/25 16:53 01/13/25 04:37 Alanine Aminotransferase (ALT) 38 U/L (7-40) 30 U/L (7-40) Alkaline Phosphatase 87 U/L (46-116) 77 U/L (46-116) Aspartate Amino Transferase (AST) 28 U/L (13-40) 23 U/L (13-40) Total Bilirubin 3.6 mg/dL (0.2-1.0) H 3.0 mg/dL (0.2-1.0) H Urinalysis Test 01/12/25 16:35 Urine Color Yellow (Yellow) Urine Clarity Turbid (Clear) H Urine pH 6.0 (5.0-9.0) Urine Specific [place] 1.031 (1.001-1.035) Urine Protein Negative (Negative) Urine Ketones Trace (Negative) Urine Blood Negative /uL (Negative) Urine Nitrite 2+ (Negative) H Urine Bilirubin Negative (Negative) Urine Urobilinogen 8 mg/dL (Negative) H Urine Leukocyte Esterase 1+ /uL (Negative) Urine RBC 2 /hpf (0 - 3) Urine Microscopic WBC 17 /HPF (0-3) H Urine Squamous Epithelial Cells Few /hpf (<5) Urine Bacteria Few /hpf (None Seen) H Urine Mucus Few (None Seen) Urine Glucose Normal mg/dL (Normal) Microbiology Microbiology Date/Time Source Procedure Growth Status 01/12/25 16:35 Voided Urine Urine Culture - Preliminary Resulted Labs and/or images reviewed: Labs reviewed by me, Image(s) reviewed by me Assessment/Plan Assessment/Plan Impression: -sepsis secondary to perforated appendicitis -perforated appendicitis -acute kidney injury, vasomotor nephropathy Plan: Events: Patient is assessed in step-down ICU postoperatively. -patient status post laparoscopic appendectomy -continue antibiotic therapy with Flagyl and Zosyn -continue IV fluids -PPI, DVT prophylaxis with SCD -clear liquid diet per surgery -pain management -repeat labs in a.m. Critical care time spent with patient discussing and formulating plan of care: 40 minutes. This does not include time spent performing procedures. This medical document was created using an electronic medical record system with [employer] dictation system. Although this document has been carefully reviewed, there may still be some phonetic and typographical errors. These areas are purely typographical due to imperfections of the software programs, and do not reflect any compromise in the patient's medical care. Plan discussed with: Patient, Other (RN) My Orders Orders - NICCI GARCIA NP Procedure Category Date Status Time Complete Blood Count LAB 01/14/25 Verified 05:00 Complete Blood Count LAB 01/15/25 Verified 05:00 Complete Blood Count LAB 01/16/25 Verified 05:00 Basic Metabolic Panel LAB 01/14/25 Verified 05:00 Basic Metabolic Panel LAB 01/15/25 Verified 05:00 Basic Metabolic Panel LAB 01/16/25 Verified 05:00 Date of Service: Jan 13, 2025 Billing Provider: NICCI GARCIA NP Common Visit Codes: [id number] CARE 30-74 MIN NICCI GARCIA NP Jan 13, 2025 11:08
[2025-01-13] MEDS: HYDROmorphone HCL 2 MG/ML VL/or syr IV PRN (14:07)
[2025-01-14] VITALS (26 sets, daily range): BP systolic 100–129; BP diastolic 59–101; PULSE 73–103; RESP 12–22; TEMP 98.7–101; O2SAT 92–99
[2025-01-14 04:58] LABS: Hematocrit 38.6 % (41.0-53.0); Hemoglobin 12.8 g/dL (13.5-17.5); Mean Corpuscular Hemoglobin 30.4 pg (28.0-32.0); Mean Corpuscular Volume 92.0 fL (80.0-100.0); Nucleated Red Blood Cells % 0.0 %
[2025-01-14 05:11] LABS: Chloride 104 mmol/L (98-107); Potassium 4.0 mmol/L (3.5-5.1)
[2025-01-14 05:12] LABS: Anion Gap 7 (5-15); Carbon Dioxide 25 mmol/L (20-31)
[2025-01-14 05:17] LABS: BUN/Creatinine Ratio 12.3 (10.0-20.0); Blood Urea Nitrogen 13 mg/dL (9-23)
[2025-01-14 05:25] LABS: Calcium 8.1 mg/dL (8.7-10.4); Glucose 145 mg/dL (74-106); Sodium 136 mmol/L (136-145)
--- NOTE | 2025-01-14 07:34 | DVHPN2 ---
Subjective Date Seen: Jan 14, 2025 Post op day Post op day: 1 Patient reports: No new complaints Nursing reports: No new complaints General: Normal HNT: Normal Cardiovascular: Normal Respiratory: Normal Gastrointestinal: Normal Genitourinary: Normal Musculoskeletal: Normal Neurological: Normal Objective Vitals Vital Sign Date Time Temp Pulse Resp B/P (MAP) Pulse Ox O2 Delivery O2 Flow Rate FiO2 01/14/25 07:00 87 13 118/69 (85) 99 01/14/25 06:00 Nasal Cannula* 3 32 01/14/25 04:00 99.1 99.1 Total Intake and Output 01/13/25 01/13/25 01/14/25 15:00 23:00 07:00 Intake Total 920 ml 1411 ml 1170 ml Output Total 40 ml 630 ml 530 ml Balance 880 ml 781 ml 640 ml Medications Current Medications Medications Dose Ordered Sig/Destiny Route Start Time Stop Time Status Last Admin Dose Admin Nitroglycerin 0.4 mg Q5MINP PRN SL 01/12/25 20:00 Piperacillin Sod/ Tazobactam Sod 100 ml @ 25 mls/hr Q8HR IV 01/12/25 22:00 01/14/25 05:41 25 MLS/HR Pantoprazole Sodium 40 mg DAILY IV 01/13/25 10:00 01/13/25 09:54 40 MG Ondansetron HCl 4 mg Q4HP PRN IV 01/12/25 21:45 01/14/25 03:20 4 MG Metronidazole 100 ml @ 100 mls/hr Q8H IV 01/13/25 10:00 01/14/25 01:48 100 MLS/HR Potassium Chloride/Dextrose/ Sod Cl 1,000 ml @ 120 mls/hr Q8H20M IV 01/13/25 08:30 01/14/25 02:03 120 MLS/HR Hydromorphone HCl 0.5 mg Q4HPRN PRN IV 01/13/25 13:45 01/14/25 03:22 0.5 MG Acetaminophen/ Hydrocodone Bitart 1 tab Q6HPRN PRN PO 01/13/25 13:45 Acetaminophen 650 mg Q6HP PRN PO 01/13/25 18:30 General: Normal, Well developed Head/Eyes: Normal ENT: Normal Neck: Normal, Supple Lungs: Normal, Normal inspection Cardiovascular: Normal, Regular rate and rhythm Abdominal: Normal, Soft Musculoskeletal: Normal Extremities: Normal Skin: Normal Neurological: Normal Labs and Microbiology Laboratory Tests 01/14/25 04:35 Test 01/14/25 04:35 Range/Units Serum Glucose 145 H 74-106 mg/dL Ass/Plan Labs and/or images reviewed: Labs reviewed by me, Image(s) reviewed by me Assessment/Plan s/p laparoscopic appendectomy POD#1 patient tolerating diet , no new complaints had a bowel movement this morning abdomen soft non distended, appropriately tender wound clean dry and intact COURTNEY drain serous fluid 20cc WBC elevated but still improving Plan: advance diet as tolerated continue IV antibiotics patient to ambulate COURTNEY drain site dressing can be removed and stay off patient may shower in 48 hours Plan discussed with Dr. Justin , patient Visit Coding Surgery Date of Service if different f: Jan 14, 2025 Billing Provider: MARIS JUSTIN MD Surgery Visit Codes: [id number] INP/OBS CARE(HIGH) JOANNA PEREZ NP Jan 14, 2025 07:34
[2025-01-14] MEDS: ACETAMINOPHEN 325 MG TAB PO PRN (07:44)
[2025-01-14] MEDS: HYDROcodone-ACET 5/325MG TAB PO PRN (10:37)
--- NOTE | 2025-01-14 15:37 | DVHPN2 ---
Assessment/Plan Assessment/Plan progress note 39 M admitted for abdominal parminder, found to have perforated appendicitis seen today during rounds POD 1, passing stool, able to tolerate oral feeding physical exam aox4 PERLLA clear breath sounds s1 s2 rrr abdomen soft nontender no le edema assessment and plan perforated appendicitis s/p ex lap sepsis AI possible vasomotor neprhopathy c/w fluids abx coverage with flagyl and zosyn cleared for po intake by surgery pain management diet full liq dvt ppx hold full code critical care time 35 minutes Plan discussed with: Patient Date of Service: Jan 14, 2025 Billing Provider: RIDDHI ORTA MD Common Visit Codes: [id number] CARE 30-74 MIN RIDDHI ORTA MD Jan 14, 2025 15:37
[2025-01-15 01:00] VITALS: BP 109/76; PULSE 91; RESP 18; TEMP 99.3; O2SAT 91
[2025-01-15 05:00] VITALS: BP 114/86; PULSE 77; RESP 18; TEMP 98.3; O2SAT 96
[2025-01-15 07:27] LABS: Hematocrit 39.4 % (41.0-53.0); Hemoglobin 13.5 g/dL (13.5-17.5); Mean Corpuscular Hemoglobin 31.8 pg (28.0-32.0); Mean Corpuscular Volume 92.6 fL (80.0-100.0); Nucleated Red Blood Cells % 0.0 %
[2025-01-15 07:38] LABS: Anion Gap 10 (5-15); Calcium 9.0 mg/dL (8.7-10.4); Carbon Dioxide 22 mmol/L (20-31)
[2025-01-15 07:43] LABS: BUN/Creatinine Ratio 8.3 (10.0-20.0); Blood Urea Nitrogen 9 mg/dL (9-23); Glucose 100 mg/dL (74-106)
[2025-01-15 07:50] LABS: Chloride 103 mmol/L (98-107); Potassium 3.9 mmol/L (3.5-5.1); Sodium 135 mmol/L (136-145)
[2025-01-15 08:00] VITALS: PULSE 77
[2025-01-15 09:00] VITALS: BP 117/78; PULSE 72; RESP 18; TEMP 97.1; O2SAT 85
--- NOTE | 2025-01-15 12:06 | DVHPN2 ---
Progress Note - Dictate Date Seen: Jan 15, 2025 Medical Necessity Reason Pt with a Central, PICC or Fol: No Subjective Covering for Dr. Justin E: no major events o/n. doing better. jeannette po. ambulating. vital signs Vital Sign Date Time Temp Pulse Resp B/P (MAP) Pulse Ox O2 Delivery O2 Flow Rate FiO2 01/15/25 09:25 72 18 117/78 01/15/25 09:00 97.1 85 97.1 01/14/25 20:00 Room Air* 0 21 Total Intake and Output 01/14/25 01/14/25 01/15/25 15:00 23:00 07:00 Intake Total 1210 ml 1440 ml 300 ml Output Total 131 ml 1 ml Balance 1210 ml 1309 ml 299 ml medications Current Medications Medications Dose Ordered Sig/Destiny Route Start Time Stop Time Status Last Admin Dose Admin Nitroglycerin 0.4 mg Q5MINP PRN SL 01/12/25 20:00 Piperacillin Sod/ Tazobactam Sod 100 ml @ 25 mls/hr Q8HR IV 01/12/25 22:00 01/15/25 06:26 25 MLS/HR Pantoprazole Sodium 40 mg DAILY IV 01/13/25 10:00 01/14/25 07:40 40 MG Ondansetron HCl 4 mg Q4HP PRN IV 01/12/25 21:45 01/15/25 09:25 4 MG Metronidazole 100 ml @ 100 mls/hr Q8H IV 01/13/25 10:00 01/15/25 09:23 100 MLS/HR Potassium Chloride/Dextrose/ Sod Cl 1,000 ml @ 120 mls/hr Q8H20M IV 01/13/25 08:30 01/15/25 03:13 120 MLS/HR Hydromorphone HCl 0.5 mg Q4HPRN PRN IV 01/13/25 13:45 01/15/25 09:25 0.5 MG Acetaminophen/ Hydrocodone Bitart 1 tab Q6HPRN PRN PO 01/13/25 13:45 01/15/25 07:21 1 TAB Acetaminophen 650 mg Q6HP PRN PO 01/13/25 18:30 01/15/25 00:58 650 MG objective GEN: NAD. alert. ABD: surgical drain intact with min serosang drainage. laboratory and microbiology Laboratory Tests 01/15/25 06:16 Test 01/15/25 06:16 Range/Units Serum Glucose 100 74-106 mg/dL Assessment/Plan A: 1. s/p lap appendectomy for perforated appendicitis POD #2 with persistent leukocytosis P: 1. cont iv abx 2. DC home if WBC trends down tomorrow. 3. Aris/Fischl will be back tomorrow to round on patient. Dietary Evaluation Review Recommendations by RD: Dietary education by RD Comments: 1) Encourage optimal PO intake 2) Advance to regular diet when medically feasible 3) Collect HbA1c 4) Refer to outpatient RD for weight management 5) Follow-up with gastroenterology 6) Continue to monitor I&O, labs, and skin integrity Expected Outcomes/Goals: 1) appetite and labs to improve 2) diet to advance 3) f/u in 3-5 days Plan discussed with: Patient MARIA LUISA PANG MD Jan 15, 2025 12:06
--- NOTE | 2025-01-15 16:37 | DVHPN2 ---
Assessment/Plan Assessment/Plan progress note 39 M admitted for abdominal parminder, found to have perforated appendicitis seen today during rounds POD 2, eating well. WBC stil high. c/w iv abx. incentive spirometry. dc tele physical exam aox4 PERLLA clear breath sounds s1 s2 rrr abdomen soft nontender no le edema assessment and plan perforated appendicitis s/p ex lap sepsis AI possible vasomotor neprhopathy c/w fluids abx coverage with flagyl and zosyn cleared for po intake by surgery pain management diet full liq dvt ppx hold full code Plan discussed with: Patient My Orders Orders - RIDDHI ORTA MD Procedure Category Date Status Time Transfer Orders XFER 01/14/25 Transmitted 16:57 Date of Service: Jan 15, 2025 Billing Provider: RIDDHI ORTA MD Common Visit Codes: [id number] INP/OBS CARE(HIGH) RIDDHI ORTA MD Jan 15, 2025 16:37
[2025-01-15 17:00] VITALS: BP 136/87; PULSE 73; RESP 18; TEMP 98.3; O2SAT 91
[2025-01-15 21:00] VITALS: BP 133/81; PULSE 76; RESP 18; TEMP 97.8; O2SAT 93
[2025-01-16] VITALS (7 sets, daily range): BP systolic 123–133; BP diastolic 81–90; PULSE 68–85; RESP 16–19; TEMP 97.7–99.4; O2SAT 82–95
[2025-01-16 06:03] LABS: Hematocrit 36.5 % (41.0-53.0); Hemoglobin 12.5 g/dL (13.5-17.5); Mean Corpuscular Hemoglobin 31.4 pg (28.0-32.0); Mean Corpuscular Volume 91.7 fL (80.0-100.0); Nucleated Red Blood Cells % 0.0 %
[2025-01-16 06:14] LABS: Calcium 9.0 mg/dL (8.7-10.4); Carbon Dioxide 26 mmol/L (20-31)
[2025-01-16 06:20] LABS: BUN/Creatinine Ratio 9.8 (10.0-20.0)
[2025-01-16 06:22] LABS: Blood Urea Nitrogen 9 mg/dL (9-23); Glucose 111 mg/dL (74-106)
[2025-01-16 06:24] LABS: Anion Gap 9 (5-15); Chloride 103 mmol/L (98-107); Potassium 3.7 mmol/L (3.5-5.1); Sodium 138 mmol/L (136-145)
--- NOTE | 2025-01-16 11:33 | DVHPN2 ---
Subjective Date Seen: Jan 16, 2025 Post op day Post op day: 4 Patient reports: No new complaints Nursing reports: No new complaints General: Normal HNT: Normal Cardiovascular: Normal Respiratory: Normal Gastrointestinal: Normal Genitourinary: Normal Musculoskeletal: Normal Neurological: Normal Objective Vitals Vital Sign Date Time Temp Pulse Resp B/P (MAP) Pulse Ox O2 Delivery O2 Flow Rate FiO2 01/16/25 10:41 85 18 125/85 01/16/25 08:00 Room Air* 0 21 01/16/25 05:00 97.7 93 97.7 Total Intake and Output 01/15/25 01/15/25 01/16/25 15:00 23:00 07:00 Intake Total 1200 ml 220 ml 910 ml Output Total 65 ml 10 ml Balance 1135 ml 210 ml 910 ml Medications Current Medications Medications Dose Ordered Sig/Destiny Route Start Time Stop Time Status Last Admin Dose Admin Nitroglycerin 0.4 mg Q5MINP PRN SL 01/12/25 20:00 Piperacillin Sod/ Tazobactam Sod 100 ml @ 25 mls/hr Q8HR IV 01/12/25 22:00 01/16/25 05:24 25 MLS/HR Pantoprazole Sodium 40 mg DAILY IV 01/13/25 10:00 01/16/25 09:13 40 MG Ondansetron HCl 4 mg Q4HP PRN IV 01/12/25 21:45 01/16/25 06:42 4 MG Metronidazole 100 ml @ 100 mls/hr Q8H IV 01/13/25 10:00 01/16/25 09:13 100 MLS/HR Potassium Chloride/Dextrose/ Sod Cl 1,000 ml @ 120 mls/hr Q8H20M IV 01/13/25 08:30 01/15/25 16:42 120 MLS/HR Hydromorphone HCl 0.5 mg Q4HPRN PRN IV 01/13/25 13:45 01/16/25 10:41 0.5 MG Acetaminophen/ Hydrocodone Bitart 1 tab Q6HPRN PRN PO 01/13/25 13:45 01/15/25 17:49 1 TAB Acetaminophen 650 mg Q6HP PRN PO 01/13/25 18:30 01/15/25 00:58 650 MG General: Normal, Well developed Head/Eyes: Normal ENT: Normal Neck: Normal, Supple Lungs: Normal, Normal inspection Cardiovascular: Normal, Regular rate and rhythm Abdominal: Normal, Soft Musculoskeletal: Normal Extremities: Normal Skin: Normal Neurological: Normal Labs and Microbiology Laboratory Tests 01/16/25 04:11 Test 01/16/25 04:11 Range/Units Serum Glucose 111 H 74-106 mg/dL Ass/Plan Labs and/or images reviewed: Labs reviewed by me, Image(s) reviewed by me Assessment/Plan s/p laparoscopic appendectomy POD#1 patient tolerating diet , no new complaints had a bowel movement this morning abdomen soft non distended, appropriately tender wound clean dry and intact COURTNEY drain serous fluid 20cc WBC elevated but still improving Plan: advance diet as tolerated continue IV antibiotics patient to ambulate COURTNEY drain site dressing can be removed and stay off patient may shower in 48 hours s/p laparoscopic appendectomy POD#4 patient tolerating diet , no new complaints passing gas, having bowel movements abdomen soft, non distended, appropriately tender wound clean dry and intact COURTNEY drain serous fluid 10cc WBC elevated but still improving afebrile Plan: continue IV antibiotics patient to ambulate COURTNEY drain site dressing can be removed and stay off patient may shower in 24 hours Prognosis: Excellent Plan discussed with patient , Dr. Justin Visit Coding Surgery Date of Service if different f: Jan 16, 2025 Billing Provider: MARIS JUSTIN MD Surgery Visit Codes: [id number] INP/OBS CARE(HIGH) JOANNA PEREZ NP Jan 16, 2025 11:33
--- NOTE | 2025-01-16 14:47 | DVHPN2 ---
Assessment/Plan Assessment/Plan progress note 39 M admitted for abdominal parminder, found to have perforated appendicitis seen today during rounds POD 3. further improved. riley dressing will be removed today. c/w iv abx, plan for dc tomorrow if cleared by surgery physical exam aox4 PERLLA clear breath sounds s1 s2 rrr abdomen soft nontender no le edema assessment and plan perforated appendicitis s/p ex lap sepsis Timothy possible vasomotor neprhopathy c/w fluids abx coverage with flagyl and zosyn cleared for po intake by surgery pain management diet escalate as tolerated dvt ppx hold full code Plan discussed with: Patient My Orders Orders - RIDDHI ORTA MD Procedure Category Date Status Time Discontinue Tele JANELLE 01/15/25 In Process 16:35 Transfer Orders XFER 01/15/25 Transmitted 16:35 Date of Service: Jan 16, 2025 Billing Provider: RIDDHI ORTA MD Common Visit Codes: [id number] INP/OBS CARE(HIGH) RIDDHI ORTA MD Jan 16, 2025 14:47
[2025-01-17] VITALS (7 sets, daily range): BP systolic 118–138; BP diastolic 69–87; PULSE 68–83; RESP 16–18; TEMP 98–98.8; O2SAT 90–98
[2025-01-17 10:11] LABS: Hematocrit 40.5 % (41.0-53.0); Hemoglobin 13.5 g/dL (13.5-17.5); Mean Corpuscular Hemoglobin 30.7 pg (28.0-32.0); Mean Corpuscular Volume 92.2 fL (80.0-100.0); Nucleated Red Blood Cells % 0.1 %
[2025-01-17] MEDS ORDERED: AUG875T PO (15:48)
[2025-01-17] MEDS ORDERED: HYDR-4902 PO (15:57)
--- NOTE | 2025-01-17 16:13 | DVHPN2 ---
Subjective Patient denies any symptoms at this time Reviewed: Care Plan, H&P, Labs, Medications Changes from previous H/P or p: No Changes General: Per HPI Objective Vitals Vital Signs Date Time Temp Pulse Resp B/P (MAP) Pulse Ox O2 Delivery O2 Flow Rate FiO2 01/17/25 13:00 98.1 68 17 121/81 (94) 98 98.1 01/17/25 08:01 Room Air* 0 21 Intake/Output Intake and Output 01/17/25 07:00 Intake Total 2700 ml Output Total 10 ml Balance 2690 ml Intake Oral 2100 ml IV Total 600 ml Drainage Total 10 ml # Voids 8 # Bowel Movements 5 General Appearance: Alert, Oriented X3, Cooperative, No acute distress HEENT: Atraumatic, PERRLA Cardiovascular: Normal S1, Normal S2 Abdomen: Other (Hypoactive bowel sounds. Wound benign. Drain with serosanguineous) Genitourinary: No Apparent Abnormalities Musculoskeletal: Normal sensory function, Normal motor function Skin: Dry, Intact Psych/Mental Status: Mental status NL, Mood NL Medications Current Medications Medications Dose Ordered Sig/Destiny Route Start Time Stop Time Status Last Admin Dose Admin Nitroglycerin 0.4 mg Q5MINP PRN SL 01/12/25 20:00 Piperacillin Sod/ Tazobactam Sod 100 ml @ 25 mls/hr Q8HR IV 01/12/25 22:00 01/17/25 13:30 25 MLS/HR Pantoprazole Sodium 40 mg DAILY IV 01/13/25 10:00 01/17/25 09:06 40 MG Ondansetron HCl 4 mg Q4HP PRN IV 01/12/25 21:45 01/16/25 06:42 4 MG Acetaminophen/ Hydrocodone Bitart 1 tab Q6HPRN PRN PO 01/13/25 13:45 01/15/25 17:49 1 TAB Acetaminophen 650 mg Q6HP PRN PO 01/13/25 18:30 01/15/25 00:58 650 MG Laboratory Results Laboratory Tests 01/16/25 04:11 01/17/25 09:44 Urinalysis Test 01/12/25 16:35 Urine Color Yellow (Yellow) Urine Clarity Turbid (Clear) H Urine pH 6.0 (5.0-9.0) Urine Specific [place] 1.031 (1.001-1.035) Urine Protein Negative (Negative) Urine Ketones Trace (Negative) Urine Blood Negative /uL (Negative) Urine Nitrite 2+ (Negative) H Urine Bilirubin Negative (Negative) Urine Urobilinogen 8 mg/dL (Negative) H Urine Leukocyte Esterase 1+ /uL (Negative) Urine RBC 2 /hpf (0 - 3) Urine Microscopic WBC 17 /HPF (0-3) H Urine Squamous Epithelial Cells Few /hpf (<5) Urine Bacteria Few /hpf (None Seen) H Urine Mucus Few (None Seen) Urine Glucose Normal mg/dL (Normal) Microbiology Microbiology Date/Time Source Procedure Growth Status 01/13/25 07:51 Peritoneal Fluid Gram Stain - Final Resulted 01/13/25 07:51 Peritoneal Fluid Anaerobic Culture - Preliminary Resulted 01/13/25 07:51 Aerobic Culture - Preliminary Escherichia coli Pseudomonas aeruginosa Resulted 01/12/25 23:51 Nose MRSA Screen - Final Complete 01/12/25 19:43 Blood Blood Culture - Preliminary NO GROWTH AFTER 72 HOURS OF INCUBATION. Resulted 01/12/25 16:35 Voided Urine Urine Culture - Final Escherichia coli Complete Labs and/or images reviewed: Labs reviewed by me, Image(s) reviewed by me Assessment/Plan Assessment/Plan Impression: -sepsis secondary to perforated appendicitis -perforated appendicitis -acute kidney injury, vasomotor nephropathy Plan: Events: Patient wanting to be discharged. Continues to take Dilaudid every 4 hours. COUTRNEY with minimal drainage. -stop IV fluids -stop Flagyl, continue Zosyn -stop IV Dilaudid, continue with p.o. [place] -repeat labs in a.m. -discharge education given to family. We will discharge once cleared by surgery and patient is able to have adequate pain management without IV narcotics. Total time spent with patient discussing and formulating plan of care: 35 minutes. This medical document was created using an electronic medical record system with [employer] dictation system. Although this document has been carefully reviewed, there may still be some phonetic and typographical errors. These areas are purely typographical due to imperfections of the software programs, and do not reflect any compromise in the patient's medical care. Plan discussed with: Patient, Other (Mother, RN) My Orders Orders - NICCI GARCIA NP Procedure Category Date Status Time Basic Metabolic Panel LAB 01/18/25 Verified 04:00 Complete Blood Count LAB 7/8/25 Verified 04:00 Date of Service: Jan 17, 2025 Billing Provider: NICCI GARCIA NP Common Visit Codes: [id number] INP/OBS CARE(HIGH) NICCI GARCIA NP Jan 17, 2025 16:13
[2025-01-18 01:00] VITALS: BP 132/70; PULSE 84; RESP 18; TEMP 98.4; O2SAT 95
[2025-01-18 05:00] VITALS: BP 119/85; PULSE 60; RESP 20; TEMP 98.5; O2SAT 95
[2025-01-18 07:05] LABS: Hematocrit 41.7 % (41.0-53.0); Hemoglobin 14.1 g/dL (13.5-17.5); Mean Corpuscular Hemoglobin 31.2 pg (28.0-32.0); Mean Corpuscular Volume 92.2 fL (80.0-100.0); Nucleated Red Blood Cells % 0.0 %
[2025-01-18 07:17] LABS: Chloride 105 mmol/L (98-107); Potassium 3.7 mmol/L (3.5-5.1); Sodium 138 mmol/L (136-145)
[2025-01-18 07:18] LABS: Anion Gap 8 (5-15); Calcium 9.0 mg/dL (8.7-10.4); Carbon Dioxide 25 mmol/L (20-31)
[2025-01-18 07:23] LABS: BUN/Creatinine Ratio 9.8 (10.0-20.0); Blood Urea Nitrogen 10 mg/dL (9-23)
[2025-01-18 07:24] LABS: Glucose 106 mg/dL (74-106)
[2025-01-18 08:58] VITALS: BP 123/76; PULSE 58; RESP 16; TEMP 98.5; O2SAT 96
--- NOTE | 2025-01-18 11:20 | DVHPN2 ---
Progress Note Date Seen: Jan 18, 2025 Medical Necessity Reason Pt with a Central, PICC or Fol: No Objective vital signs Vital Sign Date Time Temp Pulse Resp B/P (MAP) Pulse Ox O2 Delivery O2 Flow Rate FiO2 01/18/25 08:58 98.5 58 16 123/76 (92) 96 98.5 01/18/25 07:50 Room Air* 0 21 Total Intake and Output 01/17/25 01/17/25 01/18/25 15:00 23:00 07:00 Intake Total 200 ml 1950 ml 700 ml Balance 200 ml 1950 ml 700 ml medications Current Medications Medications Dose Ordered Sig/Destiny Route Start Time Stop Time Status Last Admin Dose Admin Nitroglycerin 0.4 mg Q5MINP PRN SL 01/12/25 20:00 Piperacillin Sod/ Tazobactam Sod 100 ml @ 25 mls/hr Q8HR IV 01/12/25 22:00 01/18/25 05:50 25 MLS/HR Pantoprazole Sodium 40 mg DAILY IV 01/13/25 10:00 01/18/25 08:10 40 MG Ondansetron HCl 4 mg Q4HP PRN IV 01/12/25 21:45 01/17/25 20:13 4 MG Acetaminophen/ Hydrocodone Bitart 1 tab Q6HPRN PRN PO 01/13/25 13:45 01/17/25 20:13 1 TAB Acetaminophen 650 mg Q6HP PRN PO 01/13/25 18:30 01/15/25 00:58 650 MG laboratory and microbiology Laboratory Tests 01/18/25 06:32 Test 01/18/25 06:32 Range/Units Serum Glucose 106 74-106 mg/dL Problem List/Assessment/Plan Problem List/Assessment/Plan 01/18/25 doing well, tolerating po diet, ambulating, wounds clean and well approximated, drainage serous, he may be discharged, to see me in the office in about one week. Plan discussed with: Patient, Other Dietary Evaluation Review Recommendations by RD: Dietary education by RD Comments: 1) Encourage optimal PO intake 2) Advance to regular diet when medically feasible 3) Collect HbA1c 4) Refer to outpatient RD for weight management 5) Follow-up with gastroenterology 6) Continue to monitor I&O, labs, and skin integrity Expected Outcomes/Goals: 1) appetite and labs to improve 2) diet to advance 3) f/u in 3-5 days MARIS JUNG MD Jan 18, 2025 11:20
--- NOTE | 2025-01-18 11:54 | DVHDS2 ---
Discharge Summary Date of Admission Jan 12, 2025 at 19:58 Date of Discharge: Jan 18, 2025 Admitting Diagnosis Acute appendicitis Labs/Diagnostic Data: Laboratory Results Test 01/18/25 06:32 01/16/25 04:11 01/13/25 04:37 01/12/25 21:57 White Blood Count 13.8 10^3/uL (4.4-10.8) Red Blood Count 4.52 10^6/uL (4.5-5.90) Hemoglobin 14.1 g/dL (13.5-17.5) Hematocrit 41.7 % (41.0-53.0) Mean Corpuscular Volume 92.2 fL (80.0-100.0) Mean Corpuscular Hemoglobin 31.2 pg (28.0-32.0) Mean Corpuscular Hemoglobin Concent 33.8 g/dL (32.0-36.0) Red Cell Distribution Width 14.2 % (11.8-14.3) Platelet Count 395 10^3/uL (140-450) Mean Platelet Volume 7.8 fL (6.9-10.8) Neutrophils (%) (Auto) 67.7 % (37.0-80.0) Lymphocytes (%) (Auto) 16.6 % (10.0-50.0) Monocytes (%) (Auto) 12.5 % (0.0-12.0) Eosinophils (%) (Auto) 2.8 % (0.0-7.0) Basophils (%) (Auto) 0.4 % (0.0-2.0) Neutrophils # (Auto) 9.3 10 ^3/uL (1.6-8.6) Lymphocytes # (Auto) 2.3 10 ^3/uL (0.4-5.4) Monocytes # (Auto) 1.7 10 ^3/uL (0-1.3) Eosinophils # (Auto) 0.4 10 ^3/uL (0-0.8) Basophils # (Auto) 0.1 10 ^3/uL (0-0.2) Nucleated Red Blood Cells 0.0 % Sodium Level 138 mmol/L (136-145) Potassium Level 3.7 mmol/L (3.5-5.1) Chloride Level 105 mmol/L (98-107) Carbon Dioxide Level 25 mmol/L (20-31) Anion Gap 8 (5-15) Blood Urea Nitrogen 10 mg/dL (9-23) Creatinine 1.02 mg/dL (0.700-1.30) Glomerular Filtration Rate Calc 97 mL/min (>90) BUN/Creatinine Ratio 9.8 (10.0-20.0) Serum Glucose 106 mg/dL (74-106) Calcium Level 9.0 mg/dL (8.7-10.4) Total Bilirubin 0.7 mg/dL (0.2-1.0) Aspartate Amino Transferase (AST) 23 U/L (13-40) Alanine Aminotransferase (ALT) 30 U/L (7-40) Alkaline Phosphatase 77 U/L (46-116) Total Protein 7.0 g/dL (5.7-8.2) Albumin 4.4 g/dL (3.2-4.8) Prothrombin Time 13.1 sec (9.3-11.8) Prothrombin Time INR 1.26 (0.9-1.15) Activated Partial Thromboplast Time 31.3 SEC (24.5-34.5) Test 01/12/25 19:43 01/12/25 16:53 01/12/25 16:35 Lactic Acid Level 2.0 mmol/L (0.4-2.0) Lipase 38 U/L (12-53) Urine Color Yellow (Yellow) Urine Clarity Turbid (Clear) Urine pH 6.0 (5.0-9.0) Urine Specific [place] 1.031 (1.001-1.035) Urine Protein Negative (Negative) Urine Ketones Trace (Negative) Urine Blood Negative /uL (Negative) Urine Nitrite 2+ (Negative) Urine Bilirubin Negative (Negative) Urine Urobilinogen 8 mg/dL (Negative) Urine Leukocyte Esterase 1+ /uL (Negative) Urine RBC 2 /hpf (0 - 3) Urine Microscopic WBC 17 /HPF (0-3) Urine Squamous Epithelial Cells Few /hpf (<5) Urine Bacteria Few /hpf (None Seen) Urine Mucus Few (None Seen) Urine Glucose Normal mg/dL (Normal) Other Laboratory Tests 01/18/25 06:32 Brief Hx & Hospital Course: History of Present Illness 39-year-old male presents for evaluation of abdominal pain. Patient reports having similar symptoms two months ago but as soon as he would vomit the symptoms with the site. He states that over the past two days he has been having sharp lower abdominal pain that radiates to his right groin. He states that initially it was intermittent med since today the pain has been sharp and constant. He also reports episodes of nausea with vomiting. He also states having a fever. Course of hospitalization: Patient was taken emergently to the operating room. Patient had laparoscopic appendectomy, with findings of perforated appendicitis. Postoperatively, they recovery period was uneventful. Patient was continued on IV antibiotic therapy with both Zosyn and Flagyl. Patient has been weaned off of IV narcotics for pain management. Patient will be discharged home today after being cleared by General surgery. He will be continued on Augmentin 875 mg p.o. b.i.d. x7 days as well as being provided [place] 5/325 q.8 hours as needed for pain. He will follow up with Dr. Justin in 1-2 weeks. Patient was also instructed not to lift anything greater than 5 lb. Nursing will provide education regarding COURTNEY care. He is agreeable with discharge plan. All questions answered. Physical examination General: Alert and Oriented x3. No acute distress. Well-nourished. Eyes: EOMI. Anicteric. HENT: Moist mucous membranes. Lungs: Clear to auscultation bilaterally. No accessory muscle use. Cardiovascular: Regular rate and rhythm. No murmur. No JVD. Abdomen: Soft, non-tender and non-distended. No palpable masses. Extremities: No edema. Non-tender. Skin: No rashes or lesions. Warm. Neurologic: No focal neurological deficits. CN II-XII grossly intact, but not individually tested. Psychiatric: Cooperative. Appropriate mood and affect. Total time spent with patient discussing and formulating plan of care: 35 minutes. This medical document was created using an electronic medical record system with [employer] dictation system. Although this document has been carefully reviewed, there may still be some phonetic and typographical errors. These areas are purely typographical due to imperfections of the software programs, and do not reflect any compromise in the patient's medical care. Consults/Reason for consult General surgery: Acute appendicitis Operations or Procedures 01/13/2025: Laparoscopic appendectomy Condition at Discharge: Fair Final Diagnosis/Problems List Sepsis secondary to perforated appendicitis Secondary diagnosis: -perforated appendicitis -acute kidney injury, vasomotor nephropathy Discharge Disposition: Home Discharge Instruct/Medications Diet: Regular Activity: See Comment Activity comment: Do not lift anything greater than 5 lb until cleared by the surgeon Follow Up/Referral: Follow up with Dr. Justin in 1-2 weeks Medications: Augmentin 875 mg p.o. b.i.d. x7 days [place] 5/325 q.8 hours as needed for [id number] pain Scheduled Amoxicillin & Pot Clavulanate (Augmentin Tablet), 875 MG PO BID Scheduled PRN Hydrocodone-Acetaminophen (Hydrocodone Bitartrate/AC 5-325 mg), 1 TAB PO Q8HP PRN 36 Discharge Statement: "Patient was advised to return to the ER or call 911 if any headaches, dizziness, shortness of breath, chest pain, abdominal pain, bleeding, fevers, or worsening of medical condition. Patient was counseled about treatment plan, medications, possible side effects, patientverbalized understanding. All questions were answered to the best of my ability. This discharge took greater then 30 minutes in planning, reviewing documentation, counseling the patient, and discussing with other team members." ASSESSMENT ASSESSMENT Assessment Sepsis secondary to perforated appendicitis Date of Service: Jan 18, 2025 Billing Provider: NICCI GARCIA NP Common Visit Codes: [id number] DISCH DAY >30min NICCI GARCIA NP Jan 18, 2025 11:54
[2025-01-18 12:22] VITALS: TEMP 36.9
== END 2025-01-18 13:58 | disposition home or self-care (01) | DRG 710 ==
LOC: ER 16:22 → OVERFLOW 19:58 → DOU IN ICU 23:49 → TELE-WESTW 01-14 17:53 → WEST WING 01-16 00:40
PROVIDERS: ADMIT Nurse Practitioner Acute Care; ATTEND Nurse Practitioner Acute Care
PROC: 0DTJ4ZZ Resection of Appendix, Percutaneous Endoscopic Approach (ICD-10-PCS; principal; 2025-01-13 07:29)
DX: A41.9 Sepsis, unspecified organism (principal); N17.0 Acute kidney failure with tubular necrosis; K35.32 Acute appendicitis with perforation, localized peritonitis, and gangrene, without abscess; N39.0 Urinary tract infection, site not specified; E86.0 Dehydration; Z79.899 Other long term (current) drug therapy
CPT/HCPCS: 36415; 71045; 74176; 80048; 80053; 81001; 82247; 83605; 83690; 85025; 85610; 85730; 86850; 86900; 86901; 87040; 87070; 87075; 87076; 87077; 87081; 87086; 87088; 87186; 87205; 96365; 96368; G0378; J0131; J2003; J2250; J2405; J2470; J2543; J2704; J3490